=== PATIENT | male | born 1950 | race Caucasian/White ===

== ENCOUNTER → 2017-08-30 | Outpatient (REF) ==
[~2017-08-30] MED LIST: ASPIRIN 32325 MG/TAB PO; CETIRIZINE10 MG PO; FLOVENT HF0.044 MG/A NS; LIPITOR40 MG PO; METOPROLOL25 MG PO; MULTIPLE VITAMI1 CAP PO; PATANASE0.6% NS; PRILOSEC 20MG20 MG PO
== END ==
LOC: ZLAB.WCH 18:09
DX: Z01.89 Encounter for other specified special examinations (principal)

== ENCOUNTER → 2018-01-31 | Outpatient (REF) | LOC: ZLAB.WCH 15:33 | DX: Z01.89 Encounter for other specified special examinations (principal) | CPT/HCPCS: G0103 ==

== ENCOUNTER 2019-02-26 05:32 | Day surgery (SDC) | payer MEDICARE, OTHER ==
[~2019-02-26] VITALS: Ht 177.8 cm; Wt 86.5 kg
[2019-02-26] VITALS (7 sets, daily range): BP systolic 125–149; BP diastolic 63–80; PULSE 50–78; TEMP 97.5–98
[2019-02-26] MEDS ORDERED: PRILOSEC 20MG20 MG PO (06:52)
[2019-02-26] MEDS ORDERED: PRAVACHOL80 MG PO (06:53)
[2019-02-26] MEDS ORDERED: LOPRESSOR 550 MG/TAB PO (06:54)
[2019-02-26] MEDS ORDERED: IMDUR 30MG30 MG/TAB PO (06:54)
[2019-02-26] MEDS ORDERED: ASPIRIN 81M81 MG/TA2 PO (06:55)
[2019-02-26] MEDS ORDERED: MOBIC15 MG PO ×2 (06:55→08:57)
[2019-02-26] MEDS ORDERED: ZYRTEC 10MG10 MG PO (06:56)
[2019-02-26] MEDS ORDERED: FLONASE NASAL S16 GM NS (06:57)
[2019-02-26] MEDS ORDERED: CBD PO (06:58)
--- NOTE | 2019-02-26 08:35 | NUR ---
Patient returns to room 1 per cart from PACU and is awake and alert. Temp 97.2 and room air sats 97%. Foot of cart is elevated and ice bag on the right knee. Damaso wrap dressing dry and intact. Right foot warm to touch and +2 pulse noted. IV fluids infusing and family in room. Siderails up x2 and call light in reach.
--- NOTE | 2019-02-26 08:50 | NUR ---
Drinking water and denies pain or nausea. States that he feels sleepy and allowed to rest.
[2019-02-26] MEDS ORDERED: NORCO 325 MG-51 TAB PO (08:54)
[2019-02-26] MEDS ORDERED: ASPIRIN 32325 MG/TAB PO (08:56)
[2019-02-26] MEDS ORDERED: ZOFRAN 4MG T4 MG/TAB PO (08:58)
[2019-02-26] MEDS ORDERED: COLACE 100100 MG/CAP PO (08:58)
--- NOTE | 2019-02-26 09:05 | NUR ---
Continues to rest and denies pain or nausea. Room air sats 99%. Spouse in room.
--- NOTE | 2019-02-26 09:20 | NUR ---
Continues to drink water and offers no complaints of pain or nausea. Damaso wrap dressing dry and intact on the right knee.
--- NOTE | 2019-02-26 09:35 | NUR ---
Eating muffin and drinking water. Continues to deny pain or nausea. Room air sats 97%.
--- NOTE | 2019-02-26 09:40 | NUR ---
Assisted up to the bathroom with use of crutches. Gait steady. Patient is able to void and returns to room. Sitting on edge of cart and finishing muffin. Continues to deny pain or nausea. Spouse in room.
--- NOTE | 2019-02-26 10:15 | NUR ---
INT discontinued and given dismissal instructions. Provided scripts for [place], Colace, Zofran, ASA, Mobic to be filled at pharmacy. Given scripts for Physical therapy protocol to be followed and instructed to hand carry these scripts with him to therapy appointment. Provided instructions from Dr. Sweet's office to be followed at home. Given office number for questions and concerns.
--- NOTE | 2019-02-26 10:45 | NUR ---
Dismissal instructions signed and patient dismissed to home per private vehicle driven by spouse and taken to the front door per wheelchair and assisted into car with instructions in hand.
== END 2019-02-26 10:45 | disposition home or self-care (01) ==
LOC: SDCO 05:32
DX: S83.281A Other tear of lateral meniscus, current injury, right knee, initial encounter (principal); S83.241A Other tear of medial meniscus, current injury, right knee, initial encounter; J44.9 Chronic obstructive pulmonary disease, unspecified; M10.9 Gout, unspecified; I25.10 Atherosclerotic heart disease of native coronary artery without angina pectoris; E78.00 Pure hypercholesterolemia, unspecified; Z87.891 Personal history of nicotine dependence; Z80.9 Family history of malignant neoplasm, unspecified; Z82.61 Family history of arthritis; Z79.82 Long term (current) use of aspirin; Z95.1 Presence of aortocoronary bypass graft; G47.33 Obstructive sleep apnea (adult) (pediatric); J30.2 Other seasonal allergic rhinitis; M19.90 Unspecified osteoarthritis, unspecified site
CPT/HCPCS: J0690; J1100; J1885; J2405; J2704; J3010; J7120

== ENCOUNTER 2021-01-11 12:25 | Day surgery (SDC) | payer MEDICARE, OTHER ==
[~2021-01-11] VITALS: Ht 177.8 cm; Wt 86.5 kg
[2021-01-11] VITALS (11 sets, daily range): BP systolic 108–140; BP diastolic 72–99; PULSE 58–66; TEMP 98.4
[~2021-01-11 12:25] MED LIST changes: +ASPIRIN 81M81 MG/TA2 PO; +ASPIRIN E.C. 8181 MG PO; +CBD PO; +COLACE 100100 MG/CAP PO; +FLONASE NASAL S16 GM NS; +IMDUR 30MG30 MG/TAB PO; +LOPRESSOR 550 MG/TAB PO; +MOBIC15 MG PO; +NORCO 325 MG-51 TAB PO; +PRAVACHOL80 MG PO; +ZOFRAN 4MG T4 MG/TAB PO; +ZYRTEC 10MG10 MG PO
[2021-01-11 13:26] LABS: HEMATOCRIT 42.9 % (42.0-52.0); HEMOGLOBIN 14.9 g/dl (13.5-18.0); MEAN CELL VOLUME 85 fl (80.0-100.0); MEAN CORPUSCULAR HEMOGLOBIN 29 pg (27.0-31.0); MEAN CORPUSCULAR HGB CONC 35 g/dl (33.0-37.0); MEAN PLATELET VOLUME 9.6 fl (7.4-10.4); PLATELET COUNT 231 K/mm3 (130-400); RED BLOOD COUNT 5.06 M/mm3 (4.20-5.60); REDCELL DISTRIBUTION WIDTH-CV 12.2 % (11.5-14.5)
[2021-01-11 13:58] LABS: INR 1.2 (0.8-3.0); PROTHROMBIN TIME 13.7 SECONDS (9.7-12.8)
[2021-01-11 14:00] LABS: PARTIAL THROMBOPLASTIN TIME 30.6 SECONDS (26.0-37.0)
[2021-01-11 14:03] LABS: CALCIUM 9.8 mg/dL (8.4-10.2); CREATININE, serum 0.87 (0.66-1.25)
--- NOTE | 2021-01-11 16:16 | NUR ---
Pt back to express unit after LHC. Pt is awake and alert, no distress, pwd, reg and unlabored resps. SR/SB on monitor rate 50's-60's. rt groin site looks good, dressing c/d/i, no hematoma noted. pt and updated on poc. call light in reach. dinner ordered.
--- NOTE | 2021-01-11 17:25 | NUR ---
Pt hob elevated to 30deg at this time, pt eating dinner with no problem. i reviewed dc and fu instructions with pt, angioseal pamphlet given to pt. pt and deny and questions at this time. Bedrest is over at 1830.
--- NOTE | 2021-01-11 18:50 | NUR ---
Right groin remains soft to palpation after ambulating around nurses station and to restroom. INT discontinued intact. No questions to discharge instructions given prior by Lorenza BARNETT. Transferred to private car by maribel
== END 2021-01-11 18:55 | disposition home or self-care (01) ==
LOC: COL.CAR 12:25
PROVIDERS: Internal Medicine Interventional Cardiology
DX: I25.119 Atherosclerotic heart disease of native coronary artery with unspecified angina pectoris (principal); G47.33 Obstructive sleep apnea (adult) (pediatric); R00.1 Bradycardia, unspecified; I10 Essential (primary) hypertension; E78.2 Mixed hyperlipidemia; R25.2 Cramp and spasm; Z20.822 Contact with and (suspected) exposure to COVID-19; Z79.82 Long term (current) use of aspirin; Z79.899 Other long term (current) drug therapy; Z87.891 Personal history of nicotine dependence
CPT/HCPCS: C1760; C1769; C1887; C1894; J1644; J2250; J3010